=== PATIENT | female | born 1945 | race Caucasian/White ===

== ENCOUNTER 2016-09-14 11:38 | Day surgery (SDC) | payer MEDICARE, MEDICAID ==
[~2016-09-14] VITALS: Ht 157.5 cm; Wt 76.4 kg
[~2016-09-14 11:38] MED LIST: HYDR-3498 PO; NAPR-260 PO
[2016-09-14] MEDS ORDERED: OMEP40CA6 PO (12:37)
[2016-09-14] MEDS ORDERED: DICY10CA60 PO (12:37)
[2016-09-14 12:40] VITALS: Ht 157.5 cm; Wt 76.4 kg
[2016-09-14 13:28] VITALS: BP 135/68; PULSE 52; RESP 13
--- NOTE | 2016-09-14 13:44 | OPPN ---
Date/Time of Note Date/Time of Note DATE: 09/14/16 TIME: 13:42 Operative Report Preoperative Diagnosis Upper abdominal pain Postoperative Diagnosis Hiatal hernia and gastroesophageal reflux disease Gastritis with erosions Operation/Procedure Performed Esophagogastroduodenoscopy and biopsy Provider: RENE LOPEZ MD Anesthesia Type: MAC Estimated blood loss: none Transfusion Required: no Specimens Gastric mucosal biopsy Grafts/Implants: none Complications: no RENE LOPEZ MD Sep 14, 2016 13:44
[2016-09-14] MEDS ORDERED: PROPOFOL 20 ML ONE (13:55)
[2016-09-14 14:16] VITALS: BP 147/72; PULSE 52; RESP 14
--- NOTE | 2016-09-14 14:58 | GILP ---
DATE OF PROCEDURE: 09/14/2016 PROCEDURE PERFORMED: Esophagogastroduodenoscopy and biopsy. PREOPERATIVE DIAGNOSIS: Upper abdominal pain. POSTOP DIAGNOSIS: 1. Small hiatal hernia. 2. Gastroesophageal reflux disease. 3. Gastritis with erosions. 4. Gastric mucosal biopsies were taken for Helicobacter pylori test. INDICATION: Ms. Rolanda Rowe is a 71-year-old female patient who had upper abdominal pain not responding to therapy. The patient was scheduled for endoscopic examination for further evaluation. The procedure and possible complications were well explained to the patient. She understood and consented to the procedure. DESCRIPTION OF PROCEDURE: Under the influence of anesthesia, the gastroscope was carefully introduced into the esophagus. Under direct vision it was advanced to the stomach into the pylorus into the duodenal bulb and descending duodenum. FINDINGS: Esophagus: The patient had a small hiatal hernia and gastroesophageal reflux disease. Stomach: The patient had gastritis with erosions. Gastric mucosal biopsies were taken for Helicobacter pylori test. Duodenum was normal. She tolerated the procedure very well. There was no complication from the procedure. At the end of procedure she was awake with stable vital signs and she was discharged home in care of her family. IMPRESSION: Please see postop diagnoses. PLAN: 1. Continue omeprazole. 2. Add Pepcid 40 mg p.o. q.h.s. 3. Await Helicobacter pylori test report. Dictated By: MD CHRISTINE Conner/pramod/[email or web address] /Document#: [id number]
== END 2016-09-14 18:13 | disposition home or self-care (01) ==
LOC: GIL 11:38
PROVIDERS: ATTEND Internal Medicine Gastroenterology
DX: K44.9 Diaphragmatic hernia without obstruction or gangrene (principal); K21.9 Gastro-esophageal reflux disease without esophagitis; K29.60 Other gastritis without bleeding
CPT/HCPCS: 87081

== ENCOUNTER 2016-11-30 05:49 | Day surgery (SDC) | payer MEDICARE, OTHER ==
[~2016-11-30] VITALS: Ht 157.5 cm; Wt 76.3 kg
[~2016-11-30 05:49] MED LIST changes: +DICY10CA60 PO; +OMEP40CA6 PO
[2016-11-30 06:50] VITALS: Ht 157.5 cm; Wt 76.3 kg
[2016-11-30 07:29] VITALS: BP 129/60; RESP 14
[2016-11-30] MEDS ORDERED: PROPOFOL 40 ML ONE (07:47)
[2016-11-30 08:22] VITALS: BP 122/68; PULSE 71; RESP 32
--- NOTE | 2016-11-30 08:23 | OPPN ---
Date/Time of Note Date/Time of Note DATE: 11/30/16 TIME: 08:22 Operative Report Preoperative Diagnosis Change in bowel habits Postoperative Diagnosis Right colon polyp was removed Internal hemorrhoids Operation/Procedure Performed Colonoscopy and biopsy Surgeon see signature line anesthesiologist assistant None Anesthesia: MAC Estimated blood loss: none Transfusion Required none Specimen Colon polyp Grafts/Implants none Complications none RENE LOPEZ MD Nov 30, 2016 08:23
--- NOTE | 2016-11-30 08:23 | OPPN ---
Date/Time of Note Date/Time of Note DATE: 11/30/16 TIME: 08:22 Operative Report Preoperative Diagnosis Change in bowel habits Postoperative Diagnosis Right colon polyp was removed Internal hemorrhoids Operation/Procedure Performed Colonoscopy and biopsy Surgeon see signature line executive chef assistant None Anesthesia: MAC Estimated blood loss: none Transfusion Required none Specimen Colon polyp Grafts/Implants none Complications none RENE LOPEZ MD Nov 30, 2016 08:23
--- NOTE | 2016-11-30 08:23 | OPPN ---
Date/Time of Note Date/Time of Note DATE: 11/30/16 TIME: 08:22 Operative Report Preoperative Diagnosis Change in bowel habits Postoperative Diagnosis Right colon polyp was removed Internal hemorrhoids Operation/Procedure Performed Colonoscopy and biopsy Surgeon see signature line minister assistant None Anesthesia: MAC Estimated blood loss: none Transfusion Required none Specimen Colon polyp Grafts/Implants none Complications none RENE LOPEZ MD Nov 30, 2016 08:23
[2016-11-30 08:56] VITALS: BP 138/67; RESP 14
--- NOTE | 2016-12-01 08:39 | GILP ---
DATE OF PROCEDURE: NAME OF PROCEDURES: Colonoscopy and biopsy. SURGEON: Rene Pulido MD. PREOPERATIVE DIAGNOSIS: Change in bowel habit. POSTOPERATIVE DIAGNOSES: 1. Colonoscopy all the way to the cecum. 2. Small right colon polyp was removed using the biopsy forceps. 3. Internal hemorrhoids. INDICATION FOR THE PROCEDURE: Ms. Rolanda Rowe is a 71-year-old female patient who noticed a change in the bowel habit. Her last colonoscopy was more than 12 years ago, so the patient was scheduled for colonoscopy for further evaluation. The procedure and possible complications are well explained to the patient. She understood and cons ented to the procedure. DESCRIPTION OF PROCEDURE: Under the influence of anesthesia, the colonoscope was carefully introduc ed in the rectum, and under direct vision, it was advanced all the way to the cecum. FINDINGS: The patient had a small polyp in the right colon and it was removed using the biopsy forc eps. She was noted to have internal hemorrhoids. She tolerated the procedure very well and there was no complication from the procedure. At the end of the procedure, she was awake with stable vital signs and she was discharged home to the care of h er family. IMPRESSION: Please see postoperative diagnoses. PLAN: Next screening colonoscopy in 10 years. Dictated By: RENE KING/BUD Conf#: [id number] DID#: [id number]
== END 2016-11-30 10:16 | disposition home or self-care (01) ==
LOC: GIL 05:49
PROVIDERS: ATTEND Internal Medicine Gastroenterology
DX: R19.4 Change in bowel habit (principal); K63.5 Polyp of colon; K64.8 Other hemorrhoids
CPT/HCPCS: 88305